=== PATIENT | male | born 1975 | race Caucasian/White ===

== ENCOUNTER 2025-01-24 07:32 | Day surgery (SDC) | payer BC ==
[2025-01-24] MEDS: Lactated Ringers 1,000 ML IV SCH (07:57)
[2025-01-24 10:49] VITALS: BP 136/82; PULSE 89
== END 2025-01-24 09:25 | disposition home or self-care (01) ==
LOC: CC.SDS 07:32
PROVIDERS: ATTEND Family Medicine
DX: Z12.11 Encounter for screening for malignant neoplasm of colon (principal); K64.8 Other hemorrhoids; K21.9 Gastro-esophageal reflux disease without esophagitis; E78.5 Hyperlipidemia, unspecified; E11.3591 Type 2 diabetes mellitus with proliferative diabetic retinopathy without macular edema, right eye; Z79.899 Other long term (current) drug therapy
CPT/HCPCS: 45378; J7120